=== PATIENT | female | born 1965 | race Caucasian/White ===

== ENCOUNTER 2016-10-17 08:48 | Outpatient (CLI) | payer OTHER ==
[2016-10-17 12:04] LABS: ALT (SGPT) 46 U/L (0-55); AST (SGOT) 39 U/L (5-34); Alkaline Phosphatase 111 U/L (40-150); Bilirubin, Direct 0.3 mg/dL (0.1-0.3); Bilirubin, Total 1.1 mg/dL (0.2-1.2); LDL Cholesterol, Calculated 195 mg/dL; Protein, Total 7.2 g/dL (6.0-8.3)
== END 2016-10-17 08:49 | disposition home or self-care (01) ==
LOC: BURLAB 08:48
PROVIDERS: ATTEND Family Medicine
DX: E78.5 Hyperlipidemia, unspecified (principal)
CPT/HCPCS: 36415; 80061; 80076

== ENCOUNTER 2016-10-31 09:13 | Outpatient (CLI) | payer OTHER ==
--- NOTE | 2016-10-31 21:19 | ULT ---
RIGHT UPPER QUADRANT ULTRASOUND 10/31/16 Ultrasonography of the right upper quadrant was performed for evaluation of abnormal liver function tests. The liver was normal in appearance and measures 13.9 cm in oblique sagittal length which is normal. There was no disturbance of the hepatic parenchyma. No dilated ducts or masses were seen. The gallbl adder appears normal with no signs of stones or wall thickening. Portal venous flow was towards the liver as expected. The common bile duct was a normal 4 mm in caliber. The visible portions of the pa ncreas appeared normal. The right kidney appeared normal and was 9.9 cm in length. IMPRESSION: No acute right upper quadrant findings POS: HOME
== END 2016-10-31 09:14 | disposition home or self-care (01) ==
LOC: BURULT 09:13
PROVIDERS: ATTEND Family Medicine
DX: R74.8 Abnormal levels of other serum enzymes (principal)
CPT/HCPCS: 76705

== ENCOUNTER 2017-04-26 08:30 | Outpatient (CLI) | payer OTHER ==
[2017-04-26 09:03] LABS: #Basophils 0.1 thou/uL (0.0-0.2); #Eosinphils 0.1 thou/uL (0.0-0.7); #Lymphocytes 1.7 thou/uL (1.20-3.40); #Monocytes 0.4 thou/uL (0.11-0.59); #Neutrophils 6.3 thou/uL (1.40-6.50); %Basophils 1.1 % (0.0-1.0); %Eosinophils 1.3 % (0.0-10.0); %Lymphocytes 20.2 % (21.0-51.0); %Monocytes 4.6 % (0.0-10.0); %Neutrophils 72.8 % (42.0-75.0); Hemoglobin 13.4 g/dL (12.0-16.0); Mean Corpuscular HGB CONC 33.8 g/dL (32.0-36.0); Mean Corpuscular Hemoglobin 30.3 pg (27.0-31.0); Mean Corpuscular Volume 89.6 fl (81.0-99.0); Mean Platelet Volume 7.5 fL (7.4-10.4); Platelet Count 213 thou/uL (130-400); RBC Distribution Width 14.1 % (11.5-14.5); Red Blood Cell (RBC) Count 4.43 mill/uL (4.20-5.40); White Blood Cell (WBC) Count 8.6 thou/uL (4.8-10.8)
[2017-04-26 10:08] LABS: ALT (SGPT) 25 U/L (8-55); AST (SGOT) 28 U/L (5-34); Alkaline Phosphatase 81 U/L (40-150); Anion Gap 15 mmol/L (10-20); BUN (Urea Nitrogen) 18 mg/dL (9.8-20.1); Bilirubin, Total 0.9 mg/dL (0.2-1.2); Calc. Creatinine Clearance 0 mL/min (70-130); Calcium 9.3 mg/dL (7.8-10.44); Carbon Dioxide 28 mmol/L (22-29); Cardiac Risk 7.2 (Less than 4.5); Chloride 102 mmol/L (98-107); Cholesterol 352 mg/dl (< 200 Desired); Estimated GFR-MDRD 65; Globulin 3.2 g/dL (2.4-3.5); Glucose 88 mg/dL (70-105); HDL Cholesterol 49 mg/dL (>60 Neg Risk); LDL Cholesterol, Calculated 263 mg/dL; Potassium 4.5 mmol/L (3.5-5.1); Protein, Total 7.2 g/dL (6.0-8.3); Sodium 140 mmol/L (136-145); Triglycerides 202 mg/dL (Less than 150)
== END 2017-04-26 08:31 | disposition home or self-care (01) ==
LOC: BURLAB 08:30
PROVIDERS: ATTEND Family Medicine
DX: E78.5 Hyperlipidemia, unspecified (principal); E03.9 Hypothyroidism, unspecified
CPT/HCPCS: 36415; 80053; 80061; 84443; 85025